=== PATIENT | female | born 1945 ===

== ENCOUNTER 2018-01-09 12:48 | Outpatient (CLI) | payer MEDICARE ==
--- NOTE | 2018-01-10 13:22 | Mammography Report ---
BONE DEXA:01/09/18 12:48:00 CLINICAL: Postmenopausal osteoporosis and history of hip fracture. COMPARISON: 12/09/14 TECHNIQUE: Two site bone DEXA performed on an Hologic scanner. FINDINGS: The average BMD of the lumbar spine L1-L4 is 0.899g/cm squared with a T-score of -1.3 and a Z-score of +1.0. This compares to 0.950g/cm squared on the last exam and represents a -5.3% change from the previous baseline. The average BMD of the right hip is 0.695g/cm squared with a T-score of -2.0 and a Z-score of -0.3. The right femoral neck BMD is 0.537g/cm squared with a T score of -2.8 and a Z score of -0.8. There is no comparison of the right hip since the left hip was scanned on the last exam. IMPRESSION: 1. WHO classification: Osteopenia with increased fracture risk based on spine measurements. A moderate decline in spine BMD compared to the last exam. 2. WHO classification: Osteoporosis with high fracture risk based on right hip measurements. RECOMMENDATION: Clinical correlation and routine screening. DEFINITIONS: BMD = Bone Mineral Density T-score = BMD related to mean peak bone mass of young adult (mean expressed in Standard Deviation) Z-score = Age matched BMD expressed in SD World Health Organization (WHO) Diagnostic Criteria Normal T-score > -1 SD Osteopenia T-score between -1 and -2.4 SD Osteoporosis T-score -2.5 SD or below NOTE: BMD is not the only risk factor for fracture; also consider factors such as the patient's age, risk of falling, previous osteoporotic fracture, family history of osteoporotic fractures, current smoker, and low body weight. Z-scores are not calculated if >80 years of age.
== END 2018-01-09 12:49 | disposition home or self-care (01) ==
LOC: SPVWC 12:48
PROVIDERS: ATTEND Family Medicine
DX: M81.0 Age-related osteoporosis without current pathological fracture (principal); M85.88 Other specified disorders of bone density and structure, other site; F17.210 Nicotine dependence, cigarettes, uncomplicated; Z78.0 Asymptomatic menopausal state
CPT/HCPCS: 77080